=== PATIENT | female | born 1970 | race Caucasian/White ===

== ENCOUNTER 2017-08-28 14:42 | Emergency (ER) | payer SELFPAY ==
[~2017-08-28] VITALS: Ht 170.2 cm; Wt 95.5 kg
[~2017-08-28 14:42] MED LIST: AMITRIPTYLINE H25 M1 PO; AMITRIPTYLINE H75 M1 PO; AMOXICILLIN 50500 MG PO; AMOXICILLIN 8751 TAB PO; ASMANEX TW110 MCG/Ac INH; ASPIRIN 81M81 MG/TA2 PO; ATARAX 25MG25 MG/TAB PO; BACTRIM DS 8001 TAB PO; CELEXA 20MG20 MG/TAB PO; CIPRO 500MG TA500 MG PO; EFFEXOR XR75 MG/CAP PO; FLEXERIL 1010 MG/TAB PO; IMITREX50 MG PO; MOBIC15 MG; MOTRIN 600600 MG/TAB; NAPROSYN500 MG PO; NORCO 325 MG-51 TAB PO; PERCOCET 325 MG1 TA2 PO; PREDNISONE10 MG PO; PRILOSEC 20MG20 MG PO; PROZAC40 MG PO; SINGULAIR 110 MG/TAB PO; STIOLTO RESPIMAT4 GM IH; TENORMIN 2525 MG/TAB PO; TENORMIN 5050 MG/TAB; ULTRAM 50MG TAB50 MG PO; VENTOLIN0.09 MG IH; VITAMIND3 5000 PO; ZOCOR 20MG20 MG PO; ZOFRAN 4MG T4 MG/TAB PO; ZOFRAN8 MG PO; ZOLOFT 50MG50 MG PO
[2017-08-28 14:45] VITALS: BP 113/72; TEMP 97.8
[2017-08-28 16:23] LABS: BASO # 0.1 (0.0-0.2); BASO % 1.2 % (0.0-2.0); EOS # 0.2 (0.0-0.7); EOS % 2.8 % (0-4.0); GRAN % 53.9 % (42.2-75.2); HEMATOCRIT 41.3 % (37.0-47.0); HEMOGLOBIN 13.6 g/dl (12.5-16.0); LYMPH # 2.7 (1.2-3.4); LYMPH % 36.5 % (20.0-51.0); MEAN CELL VOLUME 93 fl (80.0-100.0); MEAN CORPUSCULAR HEMOGLOBIN 31 pg (27.0-31.0); MEAN CORPUSCULAR HGB CONC 33 g/dl (33.0-37.0); MEAN PLATELET VOLUME 9.2 fl (7.4-10.4); MONO # 0.4 (0.1-0.6); MONO % 5.3 % (1.7-9.3); PLATELET COUNT 390 K/mm3 (130-400); RED BLOOD COUNT 4.44 M/mm3 (4.10-5.30); REDCELL DISTRIBUTION WIDTH-CV 13.1 % (11.5-14.5); WHITE BLOOD COUNT 7.4 K/mm3 (4.8-10.8)
[2017-08-28 16:38] LABS: CALCIUM 9.6 mg/dL (8.4-10.2); CREATININE, serum 0.7 mg/dL (0.52-1.25); POTASSIUM 3.9 mmol/L (3.4-5.0)
[2017-08-28] MEDS ORDERED: VOLTAREN 75 DR75 MG PO (17:50)
[2017-08-28 17:53] VITALS: PULSE 86
== END 2017-08-28 17:53 | disposition home or self-care (01) ==
LOC: COL.ER 14:42
PROVIDERS: Emergency Medicine
DX: M79.661 Pain in right lower leg (principal); E78.5 Hyperlipidemia, unspecified; I10 Essential (primary) hypertension; J44.9 Chronic obstructive pulmonary disease, unspecified; F17.210 Nicotine dependence, cigarettes, uncomplicated; Z79.82 Long term (current) use of aspirin

== ENCOUNTER 2017-09-18 13:41 | Emergency (ER) | payer SELFPAY ==
[~2017-09-18] VITALS: Ht 170.2 cm; Wt 98.2 kg
[~2017-09-18 13:41] MED LIST changes: +VOLTAREN 75 DR75 MG PO
[2017-09-18 13:43] VITALS: TEMP 98.1
[2017-09-18 14:20] LABS: AMPHETAMINE URINE NEGATIVE; BARBITURATES URINE NEGATIVE; BENZODIAZEPINES URINE NEGATIVE; BUPRENORPHINE URINE NEGATIVE; METHADONE URINE NEGATIVE; OPIATES URINE NEGATIVE; OXYCODONE URINE NEGATIVE; PHENCYCLIDINE URINE NEGATIVE; PROPOXYPHENE URINE NEGATIVE; THC CANNABINOIDS URINE NEGATIVE; TRICYCLIC ANTIDEPRESS URINE NEGATIVE
[2017-09-18 14:52] LABS: BASO # 0.1 (0.0-0.2); BASO % 0.8 % (0.0-2.0); EOS # 0.1 (0.0-0.7); GRAN # 6.7 (1.4-6.5); HEMATOCRIT 45.2 % (37.0-47.0); HEMOGLOBIN 14.9 g/dl (12.5-16.0); LYMPH # 2.8 (1.2-3.4); LYMPH % 27.3 % (20.0-51.0); MEAN CELL VOLUME 92 fl (80.0-100.0); MEAN CORPUSCULAR HEMOGLOBIN 30 pg (27.0-31.0); MEAN CORPUSCULAR HGB CONC 33 g/dl (33.0-37.0); MEAN PLATELET VOLUME 9.3 fl (7.4-10.4); MONO # 0.5 (0.1-0.6); MONO % 4.8 % (1.7-9.3); PLATELET COUNT 342 K/mm3 (130-400); RED BLOOD COUNT 4.94 M/mm3 (4.10-5.30); WHITE BLOOD COUNT 10.1 K/mm3 (4.8-10.8)
[2017-09-18 15:06] LABS: ACETAMINOPHEN < 10 ug/mL (10-30); ADJUSTED CALCIUM 9.3 mg/dL (8.4-10.2); ALANINE AMINOTRANSFERASE 37 U/L (9-52); ALBUMIN 4.6 gm/dL (3.5-5.0); ALKALINE PHOSPHATASE 97 U/L (50-136); ANION GAP 11 mmol/L (7-16); BILIRUBIN,TOTAL 0.5 mg/dL (0.0-1.0); BLOOD UREA NITROGEN 9 mg/dL (7-17); CALCIUM 9.8 mg/dL (8.4-10.2); CARBON DIOXIDE 25 mmol/L (22-30); CHLORIDE 105 mmol/L (98-107); GLUCOSE 81 mg/dL (74-106); POTASSIUM 3.9 mmol/L (3.4-5.0); SODIUM 141 mmol/L (137-145); TOTAL PROTEIN 7.8 gm/dL (6.4-8.2)
[2017-09-18 15:07] LABS: ALCOHOL(ethanol),MEDICAL < 10 mg/dL; SALICYLATE < 1.0 mg/dL
[2017-09-18] MEDS ORDERED: LASIX 20MG TABL20 MG PO (16:05)
[2017-09-18 23:17] VITALS: BP 132/90; PULSE 92
== END 2017-09-18 23:17 ==
LOC: COL.ER 13:41
PROVIDERS: Emergency Medicine
DX: F32.9 Major depressive disorder, single episode, unspecified (principal); R45.851 Suicidal ideations; Z79.82 Long term (current) use of aspirin

== ENCOUNTER 2017-10-13 09:40 | Emergency (ER) | payer MEDICAID ==
[~2017-10-13] VITALS: Ht 170.2 cm; Wt 95.0 kg
[~2017-10-13 09:40] MED LIST changes: +ALDACTONE 25MG25 M1 PO; +COZAAR 50MG50 MG/TAB PO; +LASIX 20MG TABL20 MG PO
[2017-10-13 09:51] VITALS: BP 115/67; TEMP 97.8
[2017-10-13 10:26] LABS: COLLECTION METHOD CLEAN CATCH
[2017-10-13 10:35] LABS: PH 6 (5-8); SQUAMOUS EPITHELIAL 0-2 /hpf; URINE APPEARANCE Clear; URINE BACTERIA Rare /hpf; URINE BILIRUBIN Negative (NEGATIVE); URINE BLOOD Negative (NEGATIVE); URINE COLOR Straw; URINE GLUCOSE Negative (NEGATIVE); URINE KETONE Negative (NEGATIVE); URINE LEUKOCYTE ESTERASE Negative (NEGATIVE); URINE PROTEIN(semi-quant) Negative (NEGATIVE); URINE RBC 0-2 /hpf; URINE UROBILINOGEN Negative (NEGATIVE); URINE WBC 0-2 /hpf
[2017-10-13] MEDS ORDERED: FLEXERIL 1010 MG/TAB PO (10:41)
[2017-10-13 10:50] VITALS: PULSE 89
== END 2017-10-13 10:51 | disposition home or self-care (01) ==
LOC: COL.ER 09:40
PROVIDERS: Nurse Practitioner
DX: S43.402A Unspecified sprain of left shoulder joint, initial encounter (principal); F17.210 Nicotine dependence, cigarettes, uncomplicated; Z79.82 Long term (current) use of aspirin; Z90.710 Acquired absence of both cervix and uterus; Z98.51 Tubal ligation status; W01.0XXA Fall on same level from slipping, tripping and stumbling without subsequent striking against object, initial encounter

== ENCOUNTER → 2018-03-10 | Outpatient (CLI) | payer SELFPAY | LOC: COL.PUL 07:47 | DX: R06.02 Shortness of breath (principal) ==

== ENCOUNTER 2018-04-04 12:08 | Observation (INO) | payer MEDICAID ==
[~2018-04-04] VITALS: Ht 170.2 cm; Wt 93.9 kg
[2018-04-04] VITALS (370 sets, daily range): BP systolic 106–109; BP diastolic 69–79; PULSE 85–86; TEMP 97.8–98; O2SAT 83–99
[~2018-04-04 12:08] MED LIST changes: +COZAAR 25MG25 MG/TAB PO; -COZAAR 50MG50 MG/TAB PO; -LASIX 20MG TABL20 MG PO; +LASIX 40MG TABL40 MG PO
[2018-04-04 13:10] LABS: BASO # 0.1 (0.0-0.2); BASO % 0.7 % (0.0-2.0); EOS # 0.3 (0.0-0.7); EOS % 3.4 % (0-4.0); GRAN % 62.5 % (42.2-75.2); HEMATOCRIT 38.5 % (37.0-47.0); LYMPH # 2.8 (1.2-3.4); LYMPH % 28.5 % (20.0-51.0); MEAN CELL VOLUME 91 fl (80.0-100.0); MEAN CORPUSCULAR HEMOGLOBIN 31 pg (27.0-31.0); MEAN CORPUSCULAR HGB CONC 34 g/dl (33.0-37.0); MEAN PLATELET VOLUME 9.3 fl (7.4-10.4); MONO # 0.4 (0.1-0.6); MONO % 4.6 % (1.7-9.3); PLATELET COUNT 382 K/mm3 (130-400); RED BLOOD COUNT 4.24 M/mm3 (4.10-5.30); REDCELL DISTRIBUTION WIDTH-CV 13.1 % (11.5-14.5)
[2018-04-04 13:23] LABS: ALANINE AMINOTRANSFERASE 32 U/L (9-52); ALKALINE PHOSPHATASE 141 U/L (50-136); ANION GAP 11 mmol/L (7-16); AST,SGOT 21 U/L (15-37); BILIRUBIN,TOTAL 0.4 mg/dL (0.0-1.0); BLOOD UREA NITROGEN 13 mg/dL (7-17); C-REACTIVE PROTEIN 1.2 mg/dL (0.0-0.9); CALCIUM 9.6 mg/dL (8.4-10.2); CARBON DIOXIDE 27 mmol/L (22-30); CHLORIDE 103 mmol/L (98-107); CREATININE, serum 0.66 mg/dL (0.52-1.25); GLUCOSE 105 mg/dL (74-106); LIPASE 28 U/L (23-300); POTASSIUM 3.7 mmol/L (3.4-5.0); SODIUM 141 mmol/L (137-145); TOTAL PROTEIN 7.5 gm/dL (6.4-8.2)
[2018-04-04 13:32] LABS: TROPONIN-I < 0.012 ng/mL (0.000-0.034)
[2018-04-04] MEDS ORDERED: 00186-0372-20 IH (15:35)
[2018-04-04] MEDS ORDERED: NEURONTIN300 MG/CAP PO (15:37)
[2018-04-04] MEDS ORDERED: SINGULAIR 110 MG/TAB PO (15:37)
[2018-04-04] MEDS ORDERED: ZOCOR 20MG20 MG PO (15:37)
[2018-04-04] MEDS ORDERED: DESYREL 100MG100 MG PO (17:16)
[2018-04-05] VITALS (578 sets, daily range): BP systolic 86–107; BP diastolic 56–67; PULSE 85–92; TEMP 98; O2SAT 90–98
[2018-04-05 06:01] LABS: BASO # 0.1 (0.0-0.2); BASO % 0.8 % (0.0-2.0); EOS # 0.4 (0.0-0.7); EOS % 4.9 % (0-4.0); GRAN # 4.2 (1.4-6.5); GRAN % 55.9 % (42.2-75.2); HEMATOCRIT 37.4 % (37.0-47.0); HEMOGLOBIN 12.2 g/dl (12.5-16.0); LYMPH # 2.4 (1.2-3.4); LYMPH % 32.1 % (20.0-51.0); MEAN CELL VOLUME 93 fl (80.0-100.0); MEAN CORPUSCULAR HEMOGLOBIN 30 pg (27.0-31.0); MEAN CORPUSCULAR HGB CONC 33 g/dl (33.0-37.0); MEAN PLATELET VOLUME 9.4 fl (7.4-10.4); MONO # 0.5 (0.1-0.6); PLATELET COUNT 341 K/mm3 (130-400); RED BLOOD COUNT 4.01 M/mm3 (4.10-5.30); REDCELL DISTRIBUTION WIDTH-CV 13.2 % (11.5-14.5)
[2018-04-05 06:16] LABS: ANION GAP 8 mmol/L (7-16); BLOOD UREA NITROGEN 15 mg/dL (7-17); CARBON DIOXIDE 27 mmol/L (22-30); CHLORIDE 105 mmol/L (98-107); CREATININE, serum 0.72 mg/dL (0.52-1.25); GLUCOSE 96 mg/dL (74-106); MAGNESIUM 2.3 mg/dL (1.6-2.3); POTASSIUM 3.8 mmol/L (3.4-5.0); SODIUM 140 mmol/L (137-145)
[2018-04-05 06:31] LABS: TROPONIN-I < 0.012 ng/mL (0.000-0.034)
[2018-04-05] MEDS ORDERED: LAMICTAL 25MG T25 MG PO (07:52)
[2018-04-05] MEDS ORDERED: ABILIFY5 MG PO (07:53)
[2018-04-05] MEDS ORDERED: VITAMIN D3400 I1 PO (07:54)
[2018-04-05] MEDS ORDERED: VOLTAREN 75 DR75 MG PO (07:56)
[2018-04-05] MEDS ORDERED: PEPCID 20MG TAB20 MG PO (07:56)
[2018-04-05] MEDS ORDERED: ATARAX 25MG25 MG/TAB PO (07:57)
[2018-04-05] MEDS ORDERED: COZAAR 25MG25 MG/TAB PO (07:58)
== END 2018-04-05 12:15 | disposition home or self-care (01) ==
LOC: COL.ER 12:08 → ICU 15:23 → COL.ER 15:23 → ICU 04-05 12:15
PROVIDERS: Emergency Medicine; Internal Medicine
DX: R79.1 Abnormal coagulation profile (principal); I11.0 Hypertensive heart disease with heart failure; I50.9 Heart failure, unspecified; F32.9 Major depressive disorder, single episode, unspecified; J44.9 Chronic obstructive pulmonary disease, unspecified; I34.0 Nonrheumatic mitral (valve) insufficiency; I27.20 Pulmonary hypertension, unspecified; F17.210 Nicotine dependence, cigarettes, uncomplicated; G43.909 Migraine, unspecified, not intractable, without status migrainosus; Z79.82 Long term (current) use of aspirin; Z90.710 Acquired absence of both cervix and uterus; Z88.8 Allergy status to other drugs, medicaments and biological substances; Z82.49 Family history of ischemic heart disease and other diseases of the circulatory system; Z80.3 Family history of malignant neoplasm of breast
CPT/HCPCS: 99223-AI; G0378; J1650; J1940; Q9967

== ENCOUNTER 2018-09-14 10:11 | Observation (INO) | payer MEDICAID ==
[~2018-09-14] VITALS: Ht 170.2 cm; Wt 74.5 kg
[~2018-09-14 10:11] MED LIST changes: +00186-0372-20 IH; +ABILIFY5 MG PO; +DESYREL 100MG100 MG PO; +LAMICTAL 25MG T25 MG PO; +NEURONTIN300 MG/CAP PO; +PEPCID 20MG TAB20 MG PO; +VITAMIN D3400 I1 PO
[2018-09-14 10:42] LABS: BASO # 0.1 (0.0-0.2); BASO % 0.7 % (0.0-2.0); EOS # 0.1 (0.0-0.7); EOS % 1.2 % (0-4.0); GRAN % 72.2 % (42.2-75.2); HEMATOCRIT 40.1 % (37.0-47.0); LYMPH # 1.9 (1.2-3.4); LYMPH % 19.3 % (20.0-51.0); MEAN CELL VOLUME 92 fl (80.0-100.0); MEAN CORPUSCULAR HEMOGLOBIN 30 pg (27.0-31.0); MEAN CORPUSCULAR HGB CONC 32 g/dl (33.0-37.0); MEAN PLATELET VOLUME 9.3 fl (7.4-10.4); MONO # 0.6 (0.1-0.6); MONO % 6.5 % (1.7-9.3); PLATELET COUNT 357 K/mm3 (130-400); RED BLOOD COUNT 4.34 M/mm3 (4.10-5.30); REDCELL DISTRIBUTION WIDTH-CV 15.4 % (11.5-14.5)
[2018-09-14] MEDS ORDERED: CELEXA 20MG20 MG/TAB PO (10:43)
[2018-09-14 10:45] LABS: INR 1.1 (0.8-3.0); PROTHROMBIN TIME 12.1 SECONDS (9.7-12.8)
[2018-09-14 10:47] LABS: PARTIAL THROMBOPLASTIN TIME 32.8 SECONDS (26.0-37.0)
[2018-09-14 10:48] LABS: ALBUMIN 4.4 gm/dL (3.5-5.0); BILIRUBIN,TOTAL 0.7 mg/dL (0.0-1.0); CALCIUM 9.1 mg/dL (8.4-10.2); CREATININE, serum 0.64 mg/dL (0.52-1.25); POTASSIUM 3.9 mmol/L (3.4-5.0); TOTAL PROTEIN 7.6 gm/dL (6.4-8.2)
[2018-09-14] MEDS ORDERED: KLONOPIN 0.5MG0.5 MG PO (10:50)
[2018-09-14] MEDS ORDERED: DULCOLAX STOOL100 MG PO (10:51)
[2018-09-14] MEDS ORDERED: VOLTAREN 75 DR75 MG PO (10:51)
[2018-09-14] MEDS ORDERED: FLONASEALLERGY NS (10:52)
[2018-09-14] MEDS ORDERED: COZAAR 25MG25 MG/TAB PO (10:53)
[2018-09-14] MEDS ORDERED: K-DUR20 MEQ PO (10:54)
[2018-09-14 11:00] LABS: TROPONIN-I 0.023 ng/mL (0.000-0.034)
[2018-09-14 15:30] VITALS: BP 118/73; PULSE 92; TEMP 97.9
[2018-09-14 17:02] VITALS: BP 118/73; PULSE 92; TEMP 97.9
[2018-09-14 19:19] VITALS: BP 109/64; PULSE 99; TEMP 98
[2018-09-15] VITALS: BP 114/68; PULSE 84; TEMP 97.6
[2018-09-15 05:43] VITALS: BP 99/56; PULSE 89; TEMP 97.8
[2018-09-15 06:33] LABS: CHOLESTEROL 174 mg/dL (120-200); CHOLESTEROL RISK RATIO 2.2; HDL CHOLESTEROL 76 mg/dL; LDL CHOLESTEROL 87 mg/dL; TRIGLYCERIDE 56 mg/dL
[2018-09-15 06:43] LABS: TROPONIN-I < 0.012 ng/mL (0.000-0.034)
[2018-09-15 07:33] VITALS: BP 111/71; PULSE 93; TEMP 97.9
[2018-09-15] MEDS ORDERED: NICODERM C21 MG/PATC TD (11:43)
== END 2018-09-15 13:02 | disposition home or self-care (01) ==
LOC: COL.ER 10:11 → MEDICAL 12:10 → EDBEDREQ 15:15 → MEDICAL 09-15 13:02
PROVIDERS: Emergency Medicine; Physician Assistant
DX: R07.9 Chest pain, unspecified (principal); R06.02 Shortness of breath; I34.0 Nonrheumatic mitral (valve) insufficiency; I10 Essential (primary) hypertension; E78.5 Hyperlipidemia, unspecified; F32.9 Major depressive disorder, single episode, unspecified; F41.9 Anxiety disorder, unspecified; J44.9 Chronic obstructive pulmonary disease, unspecified; I27.20 Pulmonary hypertension, unspecified; G43.909 Migraine, unspecified, not intractable, without status migrainosus; F17.210 Nicotine dependence, cigarettes, uncomplicated; Z79.82 Long term (current) use of aspirin; Z90.710 Acquired absence of both cervix and uterus; Z88.6 Allergy status to analgesic agent; Z88.3 Allergy status to other anti-infective agents; Z80.3 Family history of malignant neoplasm of breast; Z82.0 Family history of epilepsy and other diseases of the nervous system
CPT/HCPCS: G0378; J1650; J2060

== ENCOUNTER 2018-11-13 22:14 | Emergency (ER) | payer MEDICAID ==
[~2018-11-13] VITALS: Ht 170.2 cm; Wt 90.0 kg
[~2018-11-13 22:14] MED LIST changes: +DULCOLAX STOOL100 MG PO; +FLONASEALLERGY NS; +K-DUR20 MEQ PO; +KLONOPIN 0.5MG0.5 MG PO; +NICODERM C21 MG/PATC TD; +ZOCOR 40MG40 MG PO
[2018-11-13 22:17] VITALS: BP 121/66; TEMP 98.1
[2018-11-13 23:01] LABS: BASO # 0.1 (0.0-0.2); BASO % 1.1 % (0.0-2.0); EOS # 0.2 (0.0-0.7); EOS % 2.9 % (0-4.0); GRAN # 4.3 (1.4-6.5); GRAN % 59.6 % (42.2-75.2); HEMATOCRIT 40.4 % (37.0-47.0); HEMOGLOBIN 13.5 g/dl (12.5-16.0); LYMPH # 2.2 (1.2-3.4); LYMPH % 30.6 % (20.0-51.0); MEAN CELL VOLUME 90 fl (80.0-100.0); MEAN CORPUSCULAR HEMOGLOBIN 30 pg (27.0-31.0); MEAN CORPUSCULAR HGB CONC 33 g/dl (33.0-37.0); MONO # 0.4 (0.1-0.6); MONO % 5.5 % (1.7-9.3); PLATELET COUNT 317 K/mm3 (130-400); RED BLOOD COUNT 4.47 M/mm3 (4.10-5.30); REDCELL DISTRIBUTION WIDTH-CV 14.9 % (11.5-14.5)
[2018-11-13 23:15] LABS: ALBUMIN 4.3 gm/dL (3.5-5.0); BILIRUBIN,TOTAL 0.5 mg/dL (0.0-1.0); C-REACTIVE PROTEIN 0.7 mg/dL (0.0-0.9); CALCIUM 8.9 mg/dL (8.4-10.2); CREATININE, serum 0.59 mg/dL (0.52-1.25); POTASSIUM 3.5 mmol/L (3.4-5.0); TOTAL PROTEIN 7.6 gm/dL (6.4-8.2)
[2018-11-13] MEDS ORDERED: IPRATROPIUM BROM3 M1 IH (23:28)
[2018-11-13] MEDS ORDERED: FLEXERIL 1010 MG/TAB PO ×2 (23:30→23:33)
[2018-11-13] MEDS ORDERED: DULCOLAX TAB5 MG PO (23:31)
[2018-11-13] MEDS ORDERED: FLONASEALLERGY NS (23:33)
[2018-11-13] MEDS ORDERED: K-DUR20 MEQ PO (23:35)
[2018-11-13 23:42] VITALS: PULSE 98
== END 2018-11-13 23:43 | disposition home or self-care (01) ==
LOC: COL.ER 22:14
PROVIDERS: Emergency Medicine
DX: M79.605 Pain in left leg (principal); M79.604 Pain in right leg; F17.210 Nicotine dependence, cigarettes, uncomplicated; J44.9 Chronic obstructive pulmonary disease, unspecified; I10 Essential (primary) hypertension; F32.9 Major depressive disorder, single episode, unspecified; F41.9 Anxiety disorder, unspecified; R25.2 Cramp and spasm; Z79.82 Long term (current) use of aspirin
CPT/HCPCS: J3010

== ENCOUNTER 2019-10-16 20:56 | Observation (INO) | payer MEDICAID ==
[~2019-10-16] VITALS: Ht 170.2 cm; Wt 85.3 kg
[~2019-10-16 20:56] MED LIST changes: +DULCOLAX TAB5 MG PO; +IPRATROPIUM BROM3 M1 IH
[2019-10-16 21:39] LABS: BASO # 0.1 (0.0-0.2); BASO % 1.3 % (0.0-2.0); EOS # 0.3 (0.0-0.7); EOS % 4.6 % (0-4.0); GRAN # 4.6 (1.4-6.5); GRAN % 62.3 % (42.2-75.2); HEMATOCRIT 44.3 % (37.0-47.0); LYMPH # 1.9 (1.2-3.4); LYMPH % 25.5 % (20.0-51.0); MEAN CELL VOLUME 93 fl (80.0-100.0); MEAN CORPUSCULAR HEMOGLOBIN 32 pg (27.0-31.0); MEAN CORPUSCULAR HGB CONC 34 g/dl (33.0-37.0); MEAN PLATELET VOLUME 9.2 fl (7.4-10.4); MONO # 0.4 (0.1-0.6); MONO % 5.9 % (1.7-9.3); PLATELET COUNT 293 K/mm3 (130-400); RED BLOOD COUNT 4.76 M/mm3 (4.10-5.30); REDCELL DISTRIBUTION WIDTH-CV 13.6 % (11.5-14.5)
[2019-10-16 21:46] LABS: ALBUMIN 4.3 gm/dL (3.5-5.0); BILIRUBIN,TOTAL 0.3 mg/dL (0.0-1.0); CALCIUM 9.5 mg/dL (8.4-10.2); CREATININE, serum 0.66 (0.52-1.25); POTASSIUM 4.6 mmol/L (3.4-5.0); TOTAL PROTEIN 7.5 gm/dL (6.4-8.2)
[2019-10-16 21:53] LABS: INR 1.1 (0.8-3.0); PROTHROMBIN TIME 12.3 SECONDS (9.7-12.8)
[2019-10-16 21:56] LABS: PARTIAL THROMBOPLASTIN TIME 31.5 SECONDS (26.0-37.0)
[2019-10-16 21:59] LABS: TROPONIN-I 0.057 ng/mL (0.000-0.035)
[2019-10-16] MEDS ORDERED: SEROQUEL 200MG200 MG PO (22:46)
[2019-10-16 23:13] VITALS: O2SAT 97
[2019-10-16] MEDS ORDERED: LASIX 80MG TABL80 MG PO (23:52)
[2019-10-16 23:59] VITALS: O2SAT 97
[2019-10-16] MEDS ORDERED: TENORMIN 2525 MG/TAB PO (23:59)
[2019-10-17] VITALS (629 sets, daily range): BP systolic 93–106; BP diastolic 55–76; PULSE 76–105; TEMP 97.3–98; O2SAT 87–100
[2019-10-17] MEDS ORDERED: AMOXICILLIN 8751 TAB PO (00:01)
[2019-10-17] MEDS ORDERED: MOBIC 7.5MG7.5 MG PO (00:02)
[2019-10-17] MEDS ORDERED: TYLENOL W/COD1 UDTAB PO (00:03)
[2019-10-17] MEDS ORDERED: THEO-DUR 3300 MG/TAB PO (00:05)
[2019-10-17] MEDS ORDERED: CALCIUM CARBON500 M1 PO (00:07)
[2019-10-17] MEDS ORDERED: VITAMIN D 400400 IU PO (00:09)
--- NOTE | 2019-10-17 00:39 | NUR ---
Arrived to ICU 7. Assessment completed. Lungs clear. Heart sounds normal. Bowels active. Pulses strong throughout. Left lower extremity bruising present. Reports intermittent chest pain/pressure. Patient reports pain is tolerable. Med rec complete. Ami notified. Will come see patient. All questions answered. Call light in reach. Heparin gtt infusing at 9.5ml/hr
[2019-10-17 01:31] LABS: MAGNESIUM 2.2 mg/dL (1.6-2.3)
[2019-10-17 01:46] LABS: TROPONIN-I 3 HR POST INITIAL 0.051 ng/mL (0.000-0.034)
--- NOTE | 2019-10-17 02:54 | NUR ---
Resting in bed. Denies needs. Call light in reach.
--- NOTE | 2019-10-17 05:19 | NUR ---
Hep Xa 0.51. Rate decreased by 1 ml/hr
--- NOTE | 2019-10-17 06:18 | NUR ---
Patient had uneventful night. Remained free of chest pain/pressure since arrival to ICU. Heparin gtt infusing at 8.5ml/hr. Resting in bed this AM. Call light in reach.
--- NOTE | 2019-10-17 07:16 | NUR ---
Report given to MAUREEN Flynn
--- NOTE | 2019-10-17 09:19 | NUR ---
Dr. Watson rounds on patient at this time. Orders as entered CPOE.
--- NOTE | 2019-10-17 11:00 | NUR ---
Initial visit; Patient thanked Report Clerk for looking in on her and offering encouragement and prayer. Patient is anxious about a test this afternoon, Report Clerk offered comfort for her concerns.
[2019-10-18] VITALS (256 sets, daily range): BP systolic 81–101; BP diastolic 49–68; PULSE 74–84; TEMP 97.8–98.1; O2SAT 73–100
--- NOTE | 2019-10-18 | NUR ---
Patient resting in bed. HepXa drawn per protocol, will determine changes with results-see flow sheet. Patient pleasant and cooperative, requested assistance to toilet-ambulated without incident, stand-by assist of staff only, returned to bed well. IV infusing well, patient denies pain or discomfort.
--- NOTE | 2019-10-18 04:00 | NUR ---
Patient resting in bed. Easily awoken to check blood pressures, no complaints of pain or discomfort, denies headache or dizziness. IV infusing well, encouraged to use call light for assistance.
[2019-10-18 06:25] LABS: BASO # 0.1 (0.0-0.2); BASO % 1.1 % (0.0-2.0); EOS # 0.3 (0.0-0.7); EOS % 4.2 % (0-4.0); GRAN # 3.4 (1.4-6.5); GRAN % 54.5 % (42.2-75.2); HEMATOCRIT 43.1 % (37.0-47.0); HEMOGLOBIN 13.8 g/dl (12.5-16.0); LYMPH # 2.1 (1.2-3.4); LYMPH % 33.2 % (20.0-51.0); MEAN CELL VOLUME 96 fl (80.0-100.0); MEAN CORPUSCULAR HEMOGLOBIN 31 pg (27.0-31.0); MEAN CORPUSCULAR HGB CONC 32 g/dl (33.0-37.0); MEAN PLATELET VOLUME 9.3 fl (7.4-10.4); MONO # 0.4 (0.1-0.6); MONO % 6.8 % (1.7-9.3); PLATELET COUNT 238 K/mm3 (130-400); RED BLOOD COUNT 4.48 M/mm3 (4.10-5.30); REDCELL DISTRIBUTION WIDTH-CV 13.8 % (11.5-14.5)
[2019-10-18 06:47] LABS: ALBUMIN 3.6 gm/dL (3.5-5.0); BILIRUBIN,TOTAL 0.4 mg/dL (0.0-1.0); CALCIUM 8.7 mg/dL (8.4-10.2); CHOLESTEROL RISK RATIO 2.6; CREATININE, serum 0.65 (0.52-1.25); POTASSIUM 4.4 mmol/L (3.4-5.0); TOTAL PROTEIN 6.4 gm/dL (6.4-8.2)
[2019-10-18 06:53] LABS: TROPONIN-I 0.029 ng/mL (0.000-0.035)
--- NOTE | 2019-10-18 07:20 | NUR ---
Report received from Mercedes REDDY and care resumed.
--- NOTE | 2019-10-18 07:30 | NUR ---
Bedside report given to MAUREEN Meng. All lines reviewed, care trasnferred at this time.
--- NOTE | 2019-10-18 09:20 | NUR ---
Assessment complete. See charting. Pt restless and states wanting to go home. Pt states she does not want to have a heart cath here and is being worked up for open heart surgery. Explained that we were waiting on cardiology to see pt for updated plan of care at this time and we would keep her updated as soon as we find anything else. Will continue to follow.
--- NOTE | 2019-10-18 09:33 | NUR ---
[employer] student met with the patient to discuss a discharge plan. The patient lives in [place] with her , Dougie. The patient has a cane and a walker which she uses as needed. The patient reports that Dougie assist with ADLs. The patient's PCP is Dr. Dunbar and reports she has an appointment with her next week on Wednesday. The patient receives medications from [facility] via mail with no difficulties. The patient does not have advance directives in the EMR. The patient was interested in a DPOA-HC form. Form provided. The patient plans to return home upon discharge with Dougie providing transportation. There are no additional needs at this time.
--- NOTE | 2019-10-18 09:57 | NUR ---
MANAGER [employer] student and the patient's nurse witnessed the patient sign her DPOA-HC. A copy was placed in the patient's chart and the original and copies were provided to the patient. Social serivces will continue to monitor.
--- NOTE | 2019-10-18 11:00 | NUR ---
Dr Brasher in to see pt at this time. Ok to discharge from his standpoint.
--- NOTE | 2019-10-18 11:50 | NUR ---
Dr Jean in to round on pt at this time, will plan for discharge.
--- NOTE | 2019-10-18 13:00 | NUR ---
Pt iv's dc'd and taken off monitor. Pt dressed for discharge. Paperwork given once present. Pt walked out for discharge at this time per pt request.
== END 2019-10-18 13:00 | disposition home or self-care (01) ==
LOC: COL.ER 20:56 → ICU 22:14 → COL.ER 22:14 → ICU 10-18 13:00
PROVIDERS: Family Medicine; Nurse Practitioner Family; ADMIT Student in an Organized Health Care Education/Training Program
DX: R07.9 Chest pain, unspecified (principal); I10 Essential (primary) hypertension; I27.20 Pulmonary hypertension, unspecified; J44.9 Chronic obstructive pulmonary disease, unspecified; F17.210 Nicotine dependence, cigarettes, uncomplicated; I95.9 Hypotension, unspecified; E78.5 Hyperlipidemia, unspecified; F41.9 Anxiety disorder, unspecified; F32.9 Major depressive disorder, single episode, unspecified; G47.30 Sleep apnea, unspecified; G43.909 Migraine, unspecified, not intractable, without status migrainosus; M19.90 Unspecified osteoarthritis, unspecified site; D64.9 Anemia, unspecified; I08.1 Rheumatic disorders of both mitral and tricuspid valves; Z79.82 Long term (current) use of aspirin; Z79.51 Long term (current) use of inhaled steroids; Z90.710 Acquired absence of both cervix and uterus; Z80.3 Family history of malignant neoplasm of breast; Z82.49 Family history of ischemic heart disease and other diseases of the circulatory system; Z88.3 Allergy status to other anti-infective agents; Z88.6 Allergy status to analgesic agent; Z82.5 Family history of asthma and other chronic lower respiratory diseases; Z80.9 Family history of malignant neoplasm, unspecified
CPT/HCPCS: 99222-AI; A9500; G0378; J1644; J2785; J7030

== ENCOUNTER 2021-03-06 10:41 | Emergency (ER) | payer MEDICAID ==
[~2021-03-06] VITALS: Ht 170.2 cm; Wt 95.5 kg
[~2021-03-06 10:41] MED LIST changes: +CALCIUM CARBON500 M1 PO; +LASIX 80MG TABL80 MG PO; +MOBIC 7.5MG7.5 MG PO; +SEROQUEL 200MG200 MG PO; +THEO-DUR 3300 MG/TAB PO; +TYLENOL W/COD1 UDTAB PO; +VITAMIN D 400400 IU PO
[2021-03-06 10:45] VITALS: TEMP 98.7
[2021-03-06] MEDS ORDERED: MOBIC 7.5MG7.5 MG PO (12:11)
[2021-03-06] MEDS ORDERED: ULTRAM 50MG TAB50 MG PO ×2 (12:11→12:13)
[2021-03-06 12:25] VITALS: BP 121/75; PULSE 86
== END 2021-03-06 12:22 | disposition home or self-care (01) ==
LOC: COL.ER 10:41
DX: M25.461 Effusion, right knee (principal); M17.11 Unilateral primary osteoarthritis, right knee; I10 Essential (primary) hypertension; E78.5 Hyperlipidemia, unspecified; J44.9 Chronic obstructive pulmonary disease, unspecified; F31.9 Bipolar disorder, unspecified; G89.29 Other chronic pain; M54.2 Cervicalgia; F17.210 Nicotine dependence, cigarettes, uncomplicated; Z88.6 Allergy status to analgesic agent; Z79.82 Long term (current) use of aspirin; Z79.51 Long term (current) use of inhaled steroids
CPT/HCPCS: J1885